=== PATIENT | female | born 1960 | race African-American/Black ===

== ENCOUNTER 2018-12-16 19:56 | Emergency (ER) | payer MEDICARE ==
[~2018-12-16] VITALS: Ht 165.1 cm; Wt 73.0 kg
[2018-12-17] MEDS ORDERED: ACETAMINOPHEN 325MG TABLET PO ONE (00:30)
[2018-12-17 00:43] LABS: CLARITY URINE CLEAR (CLEAR); COLOR URINE YELLOW (YELLOW); KETONES URINE NEGATIVE (NEGATIVE); LEUKOCYTE ESTERASE URINE 2+ (NEGATIVE); NITRITE URINE NEGATIVE (NEGATIVE); OCCULT BLOOD URINE NEGATIVE (NEGATIVE); PROTEIN URINE NEGATIVE (NEGATIVE); SPECIFIC GRAVITY URINE 1.007 (1.005-1.030); UROBILINOGEN URINE 0.2 E.U./dL (0.2-1.0)
[2018-12-17 04:08] VITALS: BP 122/87
== END 2018-12-17 04:36 | disposition home or self-care (01) ==
LOC: ER 20:23
DX: G89.29 Other chronic pain (principal); M54.5 Low back pain; N30.90 Cystitis, unspecified without hematuria
CPT/HCPCS: 81025; 99283

== ENCOUNTER 2019-02-22 09:51 | Emergency (ER) | payer MEDICARE ==
[~2019-02-22] VITALS: Ht 172.7 cm; Wt 71.0 kg
[2019-02-22 11:16] LABS: BASOPHILS % 0.9 % (0.0-2.0); EOSINOPHILS % 3.4 % (0.0-5.0); HEMATOCRIT. 39.4 % (36.0-48.0); HEMOGLOBIN. 13.4 g/dL (12.0-16.0); LYMPHOCYTES % 45.1 % (20.0-50.0); MEAN CORPUSCULAR HEMOGLOBIN 31.3 pg (28.0-32.0); MEAN CORPUSCULAR VOLUME 92.3 fL (81.0-99.0); MEAN PLATELET VOLUME 7.5 fl (7.4-10.4); MONOCYTES % 7.2 % (2.0-8.0); NEUTROPHILS % 43.4 % (40.0-76.0); PLATELET 361 x1000/uL (130-400); RED BLOOD CELL COUNT 4.27 mill/uL (4.2-5.4); RED CELL DISTRIBUTION WIDTH 13.9 % (11.6-14.6)
[2019-02-22 11:23] LABS: CHLORIDE 107 mEq/L (98-107)
[2019-02-22 11:27] LABS: ETHANOL BLOOD < 10 mg/dL
[2019-02-22] MEDS ORDERED: DIVALPROEX SODIUM 250MG DR TABLET PO ONE (12:45)
[2019-02-22] MEDS ORDERED: ACETAMINOPHEN 500MG TABLET PO ONE (12:45)
[2019-02-22] MEDS ORDERED: ARIPIPRAZOLE 5MG TABLET PO ONE (12:45)
[2019-02-22 12:52] LABS: *AMPHETAMINES SCREEN URINE NEGATIVE (NEGATIVE); *BARBITURATES SCREEN URINE NEGATIVE (NEGATIVE); *BENZODIAZEPINES SCREEN URINE NEGATIVE (NEGATIVE); *COCAINE SCREEN URINE NEGATIVE (NEGATIVE); METHADONE URINE SCREEN NEGATIVE (NEGATIVE); OPIATES URINE SCREEN NEGATIVE (NEGATIVE)
[2019-02-22 12:53] LABS: CANNABINOID URINE SCREEN NEGATIVE (NEGATIVE); PHENCYCLIDINE URINE SCREEN NEGATIVE (NEGATIVE)
[2019-02-22 15:59] VITALS: BP 130/75
== END 2019-02-22 15:58 | disposition home or self-care (01) ==
LOC: ER 10:01
DX: F25.9 Schizoaffective disorder, unspecified (principal); I10 Essential (primary) hypertension
CPT/HCPCS: 36415; 80048; 80165; 80305; 80307; 80320; 80329; 99284; G0480

== ENCOUNTER 2020-05-06 12:43 | Emergency (ER) | payer MEDICARE, OTHER ==
[~2020-05-06] VITALS: Ht 157.5 cm; Wt 82.0 kg
[2020-05-06] MEDS ORDERED: IBUPROFEN 800MG TABLET PO ONE (14:15)
[2020-05-06] MEDS ORDERED: TRAMADOL 50MG TABLET PO ONE (14:15)
[2020-05-06 14:47] VITALS: BP 117/90
== END 2020-05-06 14:47 | disposition home or self-care (01) ==
LOC: ER 12:43
DX: S93.409A Sprain of unspecified ligament of unspecified ankle, initial encounter (principal); R60.0 Localized edema; X58.XXXA Exposure to other specified factors, initial encounter; Y93.89 Activity, other specified; Y92.89 Other specified places as the place of occurrence of the external cause; Y99.8 Other external cause status
CPT/HCPCS: 29125; 99283

== ENCOUNTER 2023-09-23 19:56 | Emergency (ER) | payer MEDICARE, OTHER, MEDICAID ==
[~2023-09-23] VITALS: Ht 170.2 cm; Wt 70.0 kg
[2023-09-23 19:59] VITALS: BP 194/113; PULSE 108; RESP 20; TEMP 98.5; O2SAT 100
[2023-09-23] MEDS ORDERED: LEVETIRACETAM 1000MG PREMIX 100 ML IV ONE (20:30)
[2023-09-23 20:42] LABS: BASOPHILS % 0.4 % (0.0-2.0); EOSINOPHILS % 1.5 % (0.0-5.0); HEMATOCRIT. 39.7 % (36.0-48.0); HEMOGLOBIN. 13.2 g/dL (12.0-16.0); LYMPHOCYTES % 30.4 % (20.0-50.0); MEAN CORPUSCULAR HEMOGLOBIN 30.5 pg (28.0-32.0); MEAN CORPUSCULAR HGB CONC 33.2 g/dL (31.0-37.0); MEAN CORPUSCULAR VOLUME 91.7 fL (81.0-99.0); MONOCYTES % 6.8 % (2.0-8.0); NEUTROPHILS % 60.9 % (40.0-76.0); PLATELET 345 x1000/uL (130-400); RED BLOOD CELL COUNT 4.33 mill/uL (4.2-5.4); RED CELL DISTRIBUTION WIDTH 13.1 % (11.6-14.6); WHITE BLOOD COUNT 7.2 x1000/uL (4.5-11.0)
[2023-09-23 20:53] LABS: ALANINE AMINOTRANSFERASE 25 IU/L (10-49); ALBUMIN 4.4 g/dL (3.2-4.8); ASPARTATE AMINOTRANSFERASE 21 IU/L (<34); BILIRUBIN TOTAL 0.6 mg/dL (0.1-1.0); CALCIUM 9.3 mg/dL (8.7-10.4); CARBON DIOXIDE 25 mEq/L (21-32); CHLORIDE 110 mEq/L (98-107); CREATININE 0.8 mg/dL (0.6-1.0); GLUCOSE 114 mg/dL (70-105); POTASSIUM 3.6 mEq/L (3.5-5.1); PROTEIN TOTAL 7.8 g/dL (6.0-8.3); SODIUM 144 mEq/L (136-145); UREA NITROGEN BLOOD 7 mg/dL (9-23)
[2023-09-23 21:01] LABS: ETHANOL BLOOD < 10 mg/dL (<10)
== END 2023-09-24 02:20 | disposition left against medical advice (07) ==
LOC: ER 19:56
DX: R56.9 Unspecified convulsions (principal); R53.1 Weakness; R41.0 Disorientation, unspecified
CPT/HCPCS: 80053; 80320; 85025; 36415; 71045; 70450; 96365; 99285; J1953; G0480